=== PATIENT | female | born 1950 | race Caucasian/White ===

== ENCOUNTER 2017-09-10 19:27 | Emergency (ER) | payer SELFPAY ==
[~2017-09-10] VITALS: Ht 162.6 cm; Wt 73.5 kg
--- NOTE | 2017-09-10 20:42 | NUR ---
ER MD at bedside for patient evaluation
[2017-09-10 20:53] VITALS: BP 130/71
--- NOTE | 2017-09-10 20:53 | NUR ---
Patient discharged to home in stable conditon. Written and verbal after care instructions given. Patient verbalizes understanding of instructions. Ambulated from ER with stable gait.All belongings with patient. patient will be driven home by daughter in private vehicle.
== END 2017-09-10 20:54 | disposition home or self-care (01) ==
LOC: ER 19:29
DX: R51 Headache (principal); I72.9 Aneurysm of unspecified site; E78.00 Pure hypercholesterolemia, unspecified; I10 Essential (primary) hypertension; V89.2XXA Person injured in unspecified motor-vehicle accident, traffic, initial encounter; Y92.410 Unspecified street and highway as the place of occurrence of the external cause; Y93.89 Activity, other specified; Y99.8 Other external cause status
CPT/HCPCS: 99283; A4663

== ENCOUNTER 2018-01-07 13:20 | Emergency (ER) | payer MEDICARE, BC ==
[~2018-01-07] VITALS: Ht 162.6 cm; Wt 73.7 kg
[2018-01-07] MEDS ORDERED: NEBI10TA2 PO (13:44)
[2018-01-07] MEDS ORDERED: LORA-258 PO (13:44)
[2018-01-07] MEDS ORDERED: IV NORMAL SALINE 500 ML BAG IV ONE (14:00)
[2018-01-07] MEDS ORDERED: CLONIDINE HCL 0.2 MG TABLET PO ONE (14:00)
[2018-01-07] MEDS ORDERED: CLONIDINE HCL 0.2 MG TABLET ONE (14:05)
--- NOTE | 2018-01-07 14:06 | NUR ---
PATIENT REFUSED TO TAKE CLONIDINE AT THIS TIME DR JESSICA MADE AWARE.
[2018-01-07] MEDS ORDERED: IV NORMAL SALINE 100 ML ONE (14:10)
[2018-01-07] MEDS ORDERED: IOHEXOL 350 100 ML INFUS..BTL ONE (14:10)
[2018-01-07] MEDS ORDERED: SWABABLE VALVE TRANSFER SET EA MC ONE (14:11)
[2018-01-07 14:12] VITALS: BP 157/87
[2018-01-07 14:22] LABS: BASOPHILS % (AUTO) 0.6 % (0.0-2.0); EOSINOPHILS # (AUTO) 0.1 K/uL (0.0-0.7); EOSINOPHILS % (AUTO) 1.7 % (0.0-7.0); HEMATOCRIT 36.9 % (31.2-41.9); HEMOGLOBIN 12.5 g/dL (10.9-14.3); LYMPHOCYTES # (AUTO) 1.6 K/uL (20.0-40.0); LYMPHOCYTES % (AUTO) 24.8 % (20.5-51.5); MEAN CORPUSCULAR HEMOGLOBIN 31.7 uug (24.7-32.8); MEAN CORPUSCULAR HGB CONC 34 g/dL (32.3-35.6); MEAN CORPUSCULAR VOLUME 93.2 fL (75.5-95.3); MONOCYTES # (AUTO) 0.5 K/uL (2.0-10.0); MONOCYTES % (AUTO) 7.8 % (0.0-11.0); NEUTROPHILS # (AUTO) 4.2 K/uL (1.8-8.9); NEUTROPHILS % (AUTO) 65.1 % (38.5-71.5); PLATELET COUNT (AUTO) 170 K/uL (179-408); RED BLOOD CELL COUNT(AUTO) 3.96 MIL/uL (3.63-4.92); WHITE BLOOD COUNT (AUTO) 6.5 K/uL (3.8-11.8)
[2018-01-07 14:38] LABS: CREATININE 0.8 mg/dL (0.6-1.3); POTASSIUM 4.5 mmol/L (3.5-5.1)
[2018-01-07 14:51] LABS: BILIRUBIN,DIRECT 0.1 mg/dL (0.0-0.2); BILIRUBIN,TOTAL 0.4 mg/dL (0.2-1.0); TOTAL PROTEIN, SERUM 7.4 g/dL (6.4-8.2)
--- NOTE | 2018-01-07 16:33 | NUR ---
IV removed. Catheter intact and site benign. Pressure and 4x4 gauze applied to site. No bleeding noted. Patient discharged to home in stable conditon & steady gait. Written and verbal after care instructions givento patient. Patient verbalizes understanding of instructions.
== END 2018-01-07 16:35 | disposition home or self-care (01) ==
LOC: ER 13:20
DX: I67.1 Cerebral aneurysm, nonruptured (principal); E78.00 Pure hypercholesterolemia, unspecified; Z88.1 Allergy status to other antibiotic agents
CPT/HCPCS: 36415; 70496; 80048; 80076; 85025; 85730; 99285; A4663; J3490; Q9967

== ENCOUNTER 2020-10-17 10:22 | Emergency (ER) | payer MEDICARE, BC ==
[~2020-10-17] VITALS: Ht 162.6 cm; Wt 66.7 kg
[~2020-10-17 10:22] MED LIST: LORA-258 PO; NEBI10TA2 PO
--- NOTE | 2020-10-17 10:36 | NUR ---
at bedside for assessment
[2020-10-17] MEDS ORDERED: AMLO5TAB4 PO (10:42)
[2020-10-17] MEDS ORDERED: BUSP10TA3 PO (10:42)
[2020-10-17] MEDS ORDERED: NEBI10TA2 PO (10:42)
[2020-10-17] MEDS ORDERED: CYCLOBENZAPRINE HCL 10 MG TABLET PO ONE (10:45)
[2020-10-17] MEDS ORDERED: ACETAMINOPHEN/CODEINE 300-30 MG TABLET PO ONE (10:45)
[2020-10-17] MEDS ORDERED: DEXAMETHASONE SOD PHOSPHATE 4 MG INJ IM ONE (10:45)
[2020-10-17] MEDS ORDERED: DEXAMETHASONE SOD PHOSPHATE 10 MG INJ ONE (10:51)
[2020-10-17] MEDS ORDERED: ACETAMINOPHEN/CODEINE 300-30 MG TABLET ONE (10:51)
[2020-10-17] MEDS ORDERED: CYCLOBENZAPRINE HCL 10 MG TABLET ONE (10:51)
--- NOTE | 2020-10-17 10:54 | NUR ---
Left to CT at this time
[2020-10-17] MEDS ORDERED: ACETAMINOPHEN 325 MG TABLET PO ONE (11:00)
[2020-10-17] MEDS ORDERED: LIDO30AD10 TD (12:13)
[2020-10-17] MEDS ORDERED: CYCL10TA9 PO (12:13)
--- NOTE | 2020-10-17 12:40 | NUR ---
Patient discharged to home in stable condition. No signs of acute distress noted, took all belongings. Written and verbal after care instructions given. Patient verbalizes understanding of instructions. Stressed follow up or return to ER for worsening s/s.
[2020-10-17 12:42] VITALS: BP 113/69
== END 2020-10-17 12:33 | disposition home or self-care (01) ==
LOC: ER 10:22
DX: M51.16 Intervertebral disc disorders with radiculopathy, lumbar region (principal); I10 Essential (primary) hypertension; M48.061 Spinal stenosis, lumbar region without neurogenic claudication; E78.00 Pure hypercholesterolemia, unspecified; F41.9 Anxiety disorder, unspecified; Z88.1 Allergy status to other antibiotic agents; N32.81 Overactive bladder; M19.90 Unspecified osteoarthritis, unspecified site
CPT/HCPCS: 72131; 96372; 99284; J1100; A4663